=== PATIENT | female | born 1935 ===

== ENCOUNTER 2024-07-05 08:13 | Outpatient (AMB) | payer MEDICARE, SELFPAY ==
[2024-07-05 08:23] VITALS: BP 120/60; PULSE 62; O2SAT 98; BMI 22.5
--- NOTE | 2024-07-05 08:23 | A.OFFVIS_ITS ---
Vital Signs 07/05/24 08:23 Height 5 ft 3 in Weight 127 lb 3.307 oz BMI 22.5 BP 120/60 Blood Pressure Location Lt brachial Position Sitting Pulse 62 Pulse Source Pulse Oximeter Pulse Oximetry (%) 98 Oxygen Delivery Method Room Air Intake Visit Reasons: Arthritis Intake Note: Patient presents for follow up on osteoarthritis today. HPI HPI Arthritis: Details: She saw specialist for evaluation of back pain and management of kyphoscoliosis after MRI was ordered over the summer. Specialist recommended she have a back brace with support on her shoulders. She has not heard back about the back brace. She has difficulty after standing in which she has a tendency to move fo rward affecting her vision. Pain is intermittent and she uses Tylenol when needed. She does not have any new joint swelling. She will be having a follow- up with hand surgeon July 24 consider revision of carpal tunnel syndrome surgery. She has difficulty with writing and using her hands due to numbness. Review of Systems Const All systems reviewed & are unremarkable except as noted in HPI and below Physical Exam Vital Signs: Last Vital Signs Pulse 62 07/05/24 08:23 BP 120/60 07/05/24 08:23 Pulse Ox 98 07/05/24 08:23 Oxygen Delivery Method Room Air 07/05/24 08:23 BMI result Body Mass Index 22.5 Const Other: General: Comfortable CVS: RRR Respiratory: clear to auscultation bilaterally. Good respiratory effort Skin: No lesions seen MSK: No tenderness of any joints. No tophus present. No synovitis. Heberden nodes and Sha's nodes present. She has ulnar deviation right MCPs. She is able to make a fist with her hands. Right shoulder abduction 45 degrees. Left shoulder range of motion is normal. Bilateral ankle edema present. 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 She saw a specialist over this summer who recommended a particular back brace. Code(s): M41.9 - Scoliosis, unspecified Category: Medical Plan: I recommend that she contact the specialist to follow-up on obtaining back brace for support Orders: Orders Alanine Aminotransferase Today M10.9 - Gout, unspecified Aspartate Amino Transferase Today M10.9 - Gout, unspecified Creatinine Today M10.9 - Gout, unspecified Uric Acid Today M10.9 - Gout, unspecified Coding Level of Care Code Est Pt Level 3 (87565) Complex EM visit Add On G2211 Diagnoses Idiopathic chronic gout of multiple sites with tophus M1A.09X1 Chronicity: chronic Gout etiology: idiopathic Gout site: multiple sites Presence of tophus: with tophus Kyphoscoliosis M41.9
== END 2024-07-05 09:00 | disposition home or self-care (01) ==
LOC: HO.RHES 08:13
PROVIDERS: PCP Internal Medicine; Visit Provider Internal Medicine Rheumatology
DX: M1A.09X1 Idiopathic chronic gout, multiple sites, with tophus (tophi) (principal); M41.9 Scoliosis, unspecified
CPT/HCPCS: 99213; G2211

== ENCOUNTER → 2024-07-05 08:13 | Outpatient (BNVA) | payer MEDICARE, SELFPAY | PROVIDERS: PCP Internal Medicine; Visit Provider Internal Medicine Rheumatology | DX: M1A.09X1 Idiopathic chronic gout, multiple sites, with tophus (tophi) (principal); M41.9 Scoliosis, unspecified | CPT/HCPCS: 99212 ==

== ENCOUNTER 2025-01-02 08:21 | Outpatient (AMB) | payer MEDICARE, SELFPAY ==
[2025-01-02 08:27] VITALS: BP 100/60; PULSE 60; O2SAT 100
--- NOTE | 2025-01-02 08:27 | MHC.OFFVIS ---
Vital Signs 01/02/25 08:27 Weight 120 lb 4 oz BP 100/60 Blood Pressure Location Lt brachial Position Sitting Pulse 60 Pulse Source Pulse Oximeter Pulse Oximetry (%) 100 Oxygen Delivery Method Room Air Intake Visit Reasons: 6 mo follow up Intake Note: Patient presents for follow up on osteoarthritis today. Accompanied by: Self / Same As Patient Allergies amlodipine Allergy (Verified 01/02/25 08:28) Abdominal Pain carvedilol [From Coreg] Allergy (Verified 01/02/25 08:28) Hives diltiazem Allergy (Verified 01/02/25 08:28) Back Pain nifedipine Allergy (Verified 01/02/25 08:28) Rash verapamil Allergy (Verified 01/02/25 08:28) Rash HPI HPI 6 mo follow up: Details: No new joint pain or swelling. She continues to have numbness in her hands. She failed carpal tunnel surgery x2. 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 Good respiratory effort Skin: No lesions seen MSK: No tenderness of any joints. No tophus present. No synovitis. Heberden nodes and Sha's nodes present. She has ulnar deviation right MCPs. She is able to make a fist with her hands. Right shoulder abduction 45 degrees. Left shoulder range of motion is normal. Bilateral ankle edema present. 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 Labs from June 2023 revealed uric acid of 3.3. If she continues to have uric acid level that is suppressed, I will reduce her allopurinol dose of 300 mg daily with taking into consideration of her EGFR being 31 to reduce the risk of toxicity from allopurinol. Uric acid goal is less than 5. Code(s): M10.9 - Gout, unspecified Category: Medical Qualifiers: Gout site: multiple sites Gout etiology: idiopathic Chronicity: chronic Presence of tophus: with tophus Qualified Code(s): M1A.09X1 - Idiopathic chronic gout, multiple sites, with tophus (tophi) Plan: Labs for disease and drug monitoring ordered Continue allopurinol 400 mg daily Requesting bone densities and EMG reports from [facility] In setting of persistent numbness in hands s/p failed carpal tunnel surgery x2 and patient reports in feet. I recommend that she discuss medical management for neuropathy with PCP with consideration of low-dose gabapentin Return to clinic in 6 months or sooner if needed Orders: Orders Uric Acid Today M1A.09X1 - Idiopathic chronic gout, multiple sites, with tophus (tophi) Creatinine Today M1A.09X1 - Idiopathic chronic gout, multiple sites, with tophus (tophi) Alanine Aminotransferase Today M1A.09X1 - Idiopathic chronic gout, multiple sites, with tophus (tophi) Aspartate Amino Transferase Today M1A.09X1 - Idiopathic chronic gout, multiple sites, with tophus (tophi) Coding Level of Care Code Est Pt Level 3 (53607) Complex EM visit Add On G2211 Diagnoses Idiopathic chronic gout of multiple sites with tophus M1A.09X1 Gout site: multiple sites Gout etiology: idiopathic Chronicity: chronic Presence of tophus: with tophus
== END 2025-01-02 09:07 | disposition home or self-care (01) ==
LOC: HO.RHES 08:21
PROVIDERS: PCP Internal Medicine; Visit Provider Internal Medicine Rheumatology
DX: M1A.09X1 Idiopathic chronic gout, multiple sites, with tophus (tophi) (principal)
CPT/HCPCS: 99213; G2211

== ENCOUNTER 2025-01-02 08:21 | Outpatient (REF) | payer MEDICARE, SELFPAY ==
--- OUTSIDE RECORDS SUMMARY | 2025-01-02 10:16 | XMS_ITS | Encounter Summary ---
Author Organization [facility], Address [address] [place] [address] Phone Care Team Providers Care Supply Chain Director Name Role Phone Jus Aaron MD Primary Care Provider [phone] Encounter Details Date Type Department Care Team (Late st Contact Info) Description 08/31/2020 Orders Only [facility] [address] [phone] Frederic Richards DO [address] [place] [place] [address] Chronic kidney disease, stage 4 (severe) (HCC); Atherosclerotic renal artery stenosis (HCC); Hypertension; Type 2 diabetes mellitus with diabetic chronic kidney disease (HCC) Social History Tobacco Use Types Packs/Day Years Used Date Smoking Tobacco: Former Comments Unknown Sex and Gender Information Value Date Recorded Sex Assigned at Not on file Legal Sex Female 4:36 PM EST Gender Identity Not on file Sexual Orientation Not on file documented as of this encounter Plan of Treatment Upcoming Encounters Date Type Department Care Team (Late st Contact Info) Description 01/02/2025 3:00 PM EDT Office Visit [facility] [address] [id number] Frederic Richards, [address] [place] [place] [address] documented as of this encounter Visit Diagnoses Diagnosis Chronic kidney disease, stage 4 (severe) (HCC) Atherosclerotic renal artery stenosis (HCC) Hypertension Type 2 diabetes mellitus with diabetic chronic kidney disease (HCC) documented in this encounter Care Teams Supply Chain Director Relationship Specialty Start Date End Date Jus Aaron MD [address] [facility] [address] ZACK ESTRADA PCP - General 05/23/19 documented as of this encounter
[2025-01-02 18:13] LABS: Alanine Aminotransferase 9 U/L (0-31); Aspartate Amino Transferase 30 U/L (5-31); Estimated Glomerular Filt Rate 32
[2025-01-02 18:35] LABS: Uric Acid 3.5 mg/dL (2.4-5.7)
== END 2025-01-02 08:22 | disposition home or self-care (01) ==
LOC: HO.HKASLDS 08:21
PROVIDERS: PCP Internal Medicine; Visit Provider Internal Medicine Rheumatology
DX: M1A.09X1 Idiopathic chronic gout, multiple sites, with tophus (tophi) (principal)
CPT/HCPCS: 36415; 82565; 84450; 84460; 84550; 99212